=== PATIENT | female | born 1980 | race Two or more races ===

== ENCOUNTER 2019-04-18 21:05 | Inpatient (IN) | payer MEDICAID, OTHER ==
[~2019-04-18] VITALS: Ht 152.4 cm; Wt 68.0 kg
[2019-04-18] MEDS ORDERED: KETOROLAC 30MG/ML VIAL IV STA (22:51)
[2019-04-18] MEDS ORDERED: ONDANSETRON HCL 4MG/2ML INJ IV STA (22:51)
[2019-04-18] MEDS ORDERED: FAMOTIDINE 20MG/2ML VIAL IV STA (22:51)
[2019-04-18] MEDS ORDERED: MAGNESIUM/ALUMINUM HYDROXIDE/SIMETHICONE 30ML UDC PO STA (22:51)
[2019-04-18] MEDS ORDERED: LABETALOL 5MG/ML SYR 20 MG/4 ML SYRINGE IV ONE (23:00)
[2019-04-18 23:14] LABS: CHLORIDE 107 mEq/L (98-107)
[2019-04-18 23:16] LABS: HCG SCREEN NEGATIVE
[2019-04-18 23:22] LABS: HEMATOCRIT. 43.8 % (36.0-48.0); HEMOGLOBIN. 14.9 g/dL (12.0-16.0); MEAN CORPUSCULAR HEMOGLOBIN 28.4 pg (28.0-32.0); MEAN CORPUSCULAR VOLUME 83.2 fL (81.0-99.0); MEAN PLATELET VOLUME 10.4 fl (7.4-10.4); PLATELET 222 x1000/uL (130-400); RED BLOOD CELL COUNT 5.26 mill/uL (4.2-5.4); RED CELL DISTRIBUTION WIDTH 13.3 % (11.6-14.6)
[2019-04-19] LABS: PLATELET ESTIMATE NORMAL
[2019-04-19 00:51] LABS: CLARITY URINE CLOUDY (CLEAR); COLOR URINE YELLOW (YELLOW); KETONES URINE 1+ (NEGATIVE); LEUKOCYTE ESTERASE URINE TRACE (NEGATIVE); NITRITE URINE NEGATIVE (NEGATIVE); OCCULT BLOOD URINE NEGATIVE (NEGATIVE); PH URINE 7.5 (4.5-8.0); PROTEIN URINE 2+ (NEGATIVE); SPECIFIC GRAVITY URINE 1.027 (1.005-1.030); UROBILINOGEN URINE 0.2 E.U./dL (0.2-1.0)
[2019-04-19] MEDS ORDERED: CEFTRIAXONE 1 G PREMIX 50 ML IV ONE (02:15)
[2019-04-19] MEDS ORDERED: METRONIDAZOLE 500 MG PREMIX 100 ML IV ONE (02:15)
[2019-04-19] MEDS ORDERED: MORPHINE SULFATE 2 MG/ML CPJ (NOT FOR IM USE) IV PRN ×2 (03:30→10:00)
[2019-04-19] MEDS ORDERED: IOHEXOL-300 100 ML BOTTLE ONE (07:36)
[2019-04-19] MEDS ORDERED: HYDROCODONE/ACETAMINOPHEN 10/325MG TABLET PO PRN (10:00)
[2019-04-19] MEDS ORDERED: ACETAMINOPHEN 325MG TABLET PO PRN (10:00)
[2019-04-19] MEDS ORDERED: DIPHENHYDRAMINE 50MG/ML VIAL IV PRN (10:00)
[2019-04-19] MEDS ORDERED: IPRATROPIUM/ALBUTEROL 0.5-3(2.5)MG/3ML NEB HHN PRN (10:00)
[2019-04-19] MEDS ORDERED: LORAZEPAM 2MG/ML CPJ IV PRN (10:00)
[2019-04-19] MEDS ORDERED: MAGNESIUM/ALUMINUM HYDROXIDE/SIMETHICONE 30ML UDC PO PRN (10:00)
[2019-04-19] MEDS ORDERED: DOCUSATE SODIUM 100MG CAPSULE PO PRN (10:00)
[2019-04-19] MEDS ORDERED: GUAIFENESIN 200MG/10ML SUGAR FREE UDC PO PRN (10:00)
[2019-04-19] MEDS: DEXT 5%/0.45% NACL 1000ML 1,000 ML IV SCH (10:19)
[2019-04-19] MEDS ORDERED: PIPERACILLIN/TAZ 3.375G PREMIX 50 ML IV SCH (10:30)
[2019-04-19] MEDS: ENOXAPARIN 40MG/0.4ML SYR SUBCUT SCH (10:31)
[2019-04-19] MEDS: CLONIDINE 0.1MG TABLET PO PRN (10:31)
[2019-04-19] MEDS ORDERED: KCL 20MEQ/100ML PREMIX 100 ML IV ONE (11:19)
[2019-04-19] MEDS: SODIUM CHLORIDE 0.9% INJ 3ML FLUSH IVF SCH ×2 (14:58→21:16)
[2019-04-19 16:00] VITALS: BP 158/96
[2019-04-19 16:18] VITALS: BP 174/103
[2019-04-19] MEDS: PIPERACILLIN/TAZOBACTAM 3.375 G in DEXT 5% WATER 100 ML IV SCH (18:42)
[2019-04-19 20:00] VITALS: BP 173/102
[2019-04-19] MEDS ORDERED: INFLUENZA VIRUS VACCINE(AFLURIA) 0.5ML SYR IM ONE (20:00)
[2019-04-19 20:57] LABS: CREATINE KINASE 58 IU/L (26-192)
[2019-04-19 20:58] LABS: CREATINE KINASE MB FRACTION < 1.0 ng/mL (0.5-3.6)
[2019-04-19] MEDS: HYDRALAZINE 20MG/ML VIAL IV PRN (21:34)
[2019-04-19] MEDS: ONDANSETRON HCL 4MG/2ML INJ IV PRN (23:04)
[2019-04-20] VITALS (7 sets, daily range): BP systolic 145–181; BP diastolic 81–94
[2019-04-20] MEDS: PIPERACILLIN/TAZOBACTAM 3.375 G in DEXT 5% WATER 100 ML IV SCH ×4 (01:55→18:05)
[2019-04-20] MEDS: SODIUM CHLORIDE 0.9% INJ 3ML FLUSH IVF SCH ×3 (07:02→22:00)
[2019-04-20 07:15] LABS: BASOPHILS % 0.5 % (0.0-2.0); EOSINOPHILS % 0.4 % (0.0-5.0); HEMATOCRIT. 36.7 % (36.0-48.0); HEMOGLOBIN. 12.6 g/dL (12.0-16.0); LYMPHOCYTES % 11.7 % (20.0-50.0); MEAN CORPUSCULAR VOLUME 84.1 fL (81.0-99.0); MEAN PLATELET VOLUME 10.2 fl (7.4-10.4); MONOCYTES % 4.1 % (2.0-8.0); NEUTROPHILS % 83.3 % (40.0-76.0); PLATELET 188 x1000/uL (130-400); RED BLOOD CELL COUNT 4.36 mill/uL (4.2-5.4); RED CELL DISTRIBUTION WIDTH 13.1 % (11.6-14.6)
[2019-04-20 08:00] LABS: CHLORIDE 107 mEq/L (98-107)
[2019-04-20] MEDS: CLONIDINE 0.1MG TABLET PO PRN ×2 (08:19→20:32)
[2019-04-20] MEDS: ENOXAPARIN 40MG/0.4ML SYR SUBCUT SCH (08:20)
[2019-04-20] MEDS: DEXT 5%/0.45% NACL 1000ML 1,000 ML IV SCH ×2 (16:34→20:35)
[2019-04-21] VITALS (8 sets, daily range): BP systolic 140–186; BP diastolic 75–104
[2019-04-21] MEDS: PIPERACILLIN/TAZOBACTAM 3.375 G in DEXT 5% WATER 100 ML IV SCH ×4 (00:56→17:19)
[2019-04-21 05:03] LABS: BASOPHILS % 0.7 % (0.0-2.0); EOSINOPHILS % 3.5 % (0.0-5.0); HEMATOCRIT. 37.7 % (36.0-48.0); HEMOGLOBIN. 12.9 g/dL (12.0-16.0); LYMPHOCYTES % 27.1 % (20.0-50.0); MEAN CORPUSCULAR HEMOGLOBIN 29.2 pg (28.0-32.0); MEAN CORPUSCULAR VOLUME 85.4 fL (81.0-99.0); MEAN PLATELET VOLUME 10.3 fl (7.4-10.4); MONOCYTES % 8.2 % (2.0-8.0); NEUTROPHILS % 60.5 % (40.0-76.0); PLATELET 167 x1000/uL (130-400); RED BLOOD CELL COUNT 4.42 mill/uL (4.2-5.4); RED CELL DISTRIBUTION WIDTH 12.9 % (11.6-14.6)
[2019-04-21] MEDS: SODIUM CHLORIDE 0.9% INJ 3ML FLUSH IVF SCH ×2 (05:04→14:46)
[2019-04-21 05:15] LABS: CHLORIDE 108 mEq/L (98-107)
[2019-04-21] MEDS: HYDRALAZINE 20MG/ML VIAL IV PRN ×2 (08:26→16:52)
[2019-04-21] MEDS: ENOXAPARIN 40MG/0.4ML SYR SUBCUT SCH (09:12)
[2019-04-21] MEDS: CLONIDINE 0.1MG TABLET PO PRN ×2 (09:39→18:30)
[2019-04-21] MEDS: DEXT 5%/0.45% NACL 1000ML 1,000 ML IV SCH (11:57)
[2019-04-21] MEDS: PANTOPRAZOLE SODIUM 40 MG/VIAL IV SCH (12:33)
[2019-04-21] MEDS: ONDANSETRON HCL 4MG/2ML INJ IV PRN (18:30)
[2019-04-22] VITALS: BP 114/60
[2019-04-22] MEDS: PIPERACILLIN/TAZOBACTAM 3.375 G in DEXT 5% WATER 100 ML IV SCH ×3 (00:24→12:48)
[2019-04-22 04:00] VITALS: BP 145/82
[2019-04-22] MEDS: SODIUM CHLORIDE 0.9% INJ 3ML FLUSH IVF SCH ×3 (06:36→14:39)
[2019-04-22] MEDS: DEXT 5%/0.45% NACL 1000ML 1,000 ML IV SCH (06:38)
[2019-04-22 08:00] VITALS: BP 180/96
[2019-04-22] MEDS: PANTOPRAZOLE SODIUM 40 MG/VIAL IV SCH (09:50)
[2019-04-22] MEDS: ENOXAPARIN 40MG/0.4ML SYR SUBCUT SCH (09:50)
[2019-04-22] MEDS: HYDRALAZINE 20MG/ML VIAL IV PRN (10:09)
[2019-04-22] MEDS ORDERED: POTASSIUM CHLORIDE 20MEQ TABLET SR PO SCH (10:15)
[2019-04-22 12:00] VITALS: BP 179/98
[2019-04-22 14:02] VITALS: BP 179/98
== END 2019-04-22 15:41 | disposition home or self-care (01) | DRG 247 ==
LOC: ER 21:05 → 7WST 04-19 03:20 → ENRESERV 04-19 14:41
PROVIDERS: ADMIT Internal Medicine; ATTEND Internal Medicine
DX: K56.600 Partial intestinal obstruction, unspecified as to cause (principal); R65.10 Systemic inflammatory response syndrome (SIRS) of non-infectious origin without acute organ dysfunction; E87.6 Hypokalemia; I10 Essential (primary) hypertension; Z98.891 History of uterine scar from previous surgery; Z91.14 Patient's other noncompliance with medication regimen; Z79.899 Other long term (current) drug therapy
CPT/HCPCS: 36415; 74018; 74177; 80048; 80053; 81003; 82550; 82553; 84484; 84703; 85025; 90686; 99285; C9113; J0360; J0696; J1650; J1885; J2405; J2543; J3480; J3490; J7060; Q9967

== ENCOUNTER 2022-05-02 12:39 | Inpatient (IN) | payer MEDICAID ==
[~2022-05-02] VITALS: Ht 157.5 cm; Wt 65.8 kg
[2022-05-02 15:30] LABS: HEMATOCRIT. 35.1 % (36.0-48.0); HEMOGLOBIN. 11.5 g/dL (12.0-16.0); MEAN CORPUSCULAR HEMOGLOBIN 25.6 pg (28.0-32.0); MEAN CORPUSCULAR VOLUME 78.4 fL (81.0-99.0); MEAN PLATELET VOLUME 9.4 fl (7.4-10.4); PLATELET 227 x1000/uL (130-400); RED BLOOD CELL COUNT 4.48 mill/uL (4.2-5.4); RED CELL DISTRIBUTION WIDTH 15.4 % (11.6-14.6)
[2022-05-02 15:35] LABS: CHLORIDE 105 mEq/L (98-107)
[2022-05-02 15:59] LABS: B-HCG QUANTITATIVE 17160 mIU/mL (<3)
[2022-05-02] MEDS ORDERED: LABETALOL 5MG/ML SYR 20 MG/4 ML SYRINGE IV NR (16:15)
[2022-05-02] MEDS ORDERED: LABETALOL HCL VIAL 20 MG/4 ML VIAL IV ONE (16:15)
[2022-05-02] MEDS ORDERED: METRONIDAZOLE 500 MG PREMIX 100 ML IV ONE (16:45)
[2022-05-02] MEDS ORDERED: DOXYCYCLINE HYCLATE 100 MG/VIAL IV ONE (16:45)
[2022-05-02] MEDS ORDERED: CEFTRIAXONE 1 G PREMIX 50 ML IV ONE (16:45)
[2022-05-02] MEDS ORDERED: DOXYCYCLINE 100MG in DEXTROSE 5% WATER 100ML IV NR (17:00)
[2022-05-02 17:08] LABS: PLATELET ESTIMATE NORMAL
[2022-05-02 18:33] LABS: CLARITY URINE CLOUDY (CLEAR); COLOR URINE YELLOW (YELLOW); KETONES URINE TRACE (NEGATIVE); LEUKOCYTE ESTERASE URINE 2+ (NEGATIVE); NITRITE URINE NEGATIVE (NEGATIVE); OCCULT BLOOD URINE 1+ (NEGATIVE); PH URINE 5.5 (4.5-8.0); PROTEIN URINE 1+ (NEGATIVE); SPECIFIC GRAVITY URINE 1.024 (1.005-1.030)
[2022-05-02] MEDS ORDERED: LABETALOL 5MG/ML SYR 20 MG/4 ML SYRINGE IV ONE (18:45)
[2022-05-02 19:13] LABS: INR 0.9; PARTIAL THROMBOPLASTIN TIME 25.6 sec (23.4-31.0); PROTHROMBIN TIME 9.7 sec (9.6-11.0)
[2022-05-02] MEDS ORDERED: CEFTRIAXONE 1 G PREMIX 50 ML IV NR (19:30)
[2022-05-02 22:47] VITALS: BP 147/80
[2022-05-02] MEDS ORDERED: LABE100T9 PO (23:22)
[2022-05-02] MEDS ORDERED: ACETAMINOPHEN 325MG TABLET PO PRN ×2 (23:30)
[2022-05-02] MEDS ORDERED: DIPHENHYDRAMINE 50MG/ML VIAL IV PRN (23:30)
[2022-05-02] MEDS ORDERED: MAGNESIUM/ALUMINUM HYDROXIDE/SIMETHICONE 30ML UDC PO PRN (23:30)
[2022-05-02] MEDS ORDERED: CLONIDINE 0.1MG TABLET PO PRN (23:30)
[2022-05-02] MEDS ORDERED: ONDANSETRON HCL 4MG/2ML INJ IV PRN (23:30)
[2022-05-03] VITALS (8 sets, daily range): BP systolic 127–189; BP diastolic 49–108
[2022-05-03] MEDS: SODIUM CHLORIDE 0.9% 1,000 ML IV SCH ×3 (00:45→19:59)
[2022-05-03] MEDS: METRONIDAZOLE 500 MG PREMIX 100 ML IV SCH ×3 (05:12→21:44)
[2022-05-03] MEDS: SODIUM CHLORIDE 0.9% INJ 3ML FLUSH IVF SCH ×3 (05:12→21:36)
[2022-05-03 06:27] LABS: BASOPHILS % 0.3 % (0.0-2.0); EOSINOPHILS % 0.3 % (0.0-5.0); HEMATOCRIT. 31.6 % (36.0-48.0); HEMOGLOBIN. 10.1 g/dL (12.0-16.0); LYMPHOCYTES % 8.5 % (20.0-50.0); MEAN CORPUSCULAR HEMOGLOBIN 25.2 pg (28.0-32.0); MEAN CORPUSCULAR VOLUME 78.5 fL (81.0-99.0); MEAN PLATELET VOLUME 9.4 fl (7.4-10.4); MONOCYTES % 7.3 % (2.0-8.0); NEUTROPHILS % 83.6 % (40.0-76.0); PLATELET 198 x1000/uL (130-400); RED BLOOD CELL COUNT 4.02 mill/uL (4.2-5.4); RED CELL DISTRIBUTION WIDTH 15.5 % (11.6-14.6)
[2022-05-03 07:30] LABS: CHLORIDE 108 mEq/L (98-107)
[2022-05-03] MEDS ORDERED: LABETALOL HCL 100MG TABLET PO SCH ×2 (09:00→21:00)
[2022-05-03 13:06] LABS: HEPATITIS B SURFACE ANTIGEN NEGATIVE
[2022-05-03] MEDS ORDERED: HYDRALAZINE 20MG/ML VIAL IV NR (19:30)
[2022-05-03] MEDS ORDERED: CEFTRIAXONE 1,000 MG in DEXTROSE 5% WATER 50 ML IV SCH (20:00)
[2022-05-05 04:07] LABS: NEISSERIA GONORRHOEAE NAA Negative (Negative)
== END 2022-05-03 22:58 | disposition home or self-care (01) | DRG 564 ==
LOC: ER 14:38 → 7EST 19:18 → EDBEDREQ 19:24 → CANRESERV 20:04 → ENRESERV 20:04
PROVIDERS: ADMIT Internal Medicine; ATTEND Internal Medicine
DX: O03.5 Genital tract and pelvic infection following complete or unspecified spontaneous abortion (principal); O16.1 Unspecified maternal hypertension, first trimester; N39.0 Urinary tract infection, site not specified; Z3A.10 10 weeks gestation of pregnancy
CPT/HCPCS: 36415; 76801; 80048; 80053; 81003; 83605; 83615; 83735; 84550; 84702; 85025; 86803; 86850; 86900; 87340; 87491; 87591; 99285; J0360; J0696; J3490; J7030; J7060